=== PATIENT | female | born 1955 | race Caucasian/White ===

== ENCOUNTER 2023-11-16 10:14 | Outpatient (CLI) | payer BC, SELFPAY ==
--- NOTE | 2023-11-16 10:30 | XR_ITS ---
Patient: LUKAS BOYCE Facility:?[facility] Patient ID:?[id number] Site Patient ID:?[id number] Site :?[id number] Study:?XRay-Abdomen flat/upright-11/16/2023 10:53:10 AM Ordering Physician:Paco Final Report: Indication: Bloating, abdominal discomfort Technique: Abdomen 2 view. Comparison: None. Findings: Bowel: Bowel pattern is normal. The amount of colonic stool is within normal limits. Other: No sign of free air. No sign of soft tissue mass. No suspicious calcifications. Osseous structures are unremarkable for age. Impression: Unremarkable abdomen. Dictated by Sang Tellez MD @ 11/16/2023 12:14:02 PM Signed by:?Sang Tellez MD @11/16/2023 12:14:02 PM (Electronic Signature)
== END 2023-11-16 10:15 | disposition home or self-care (01) ==
LOC: RAD 10:22
PROVIDERS: PCP Nurse Practitioner Family; Visit Provider Nurse Practitioner Family
DX: R14.0 Abdominal distension (gaseous) (principal); R10.9 Unspecified abdominal pain; Z12.11 Encounter for screening for malignant neoplasm of colon
CPT/HCPCS: 74019